=== PATIENT | female | born 1990 | race Caucasian/White ===

== ENCOUNTER 2016-12-31 12:30 | Emergency (ER) | payer BC ==
[2016-12-31] MEDS ORDERED: Doxycycline 100 MG Cap PO ONE (12:52)
[2016-12-31] MEDS ORDERED: Sodium Chloride 0.9% 10 ML Syringe FLUSH PRN (12:52)
[2016-12-31] MEDS ORDERED: cefTRIAXone 2 GM in Sodium Chloride 0.9% 100 ML IV ONE (12:52)
--- NOTE | 2016-12-31 12:54 | EDM.PDOC ---
ED HPI GENERAL MEDICAL PROBLEM - General Chief Complaint: Lower Extremity Injury/Pain Stated Complaint: RIGHT FOOT INJURY Time Seen by Provider: 12/31/16 12:51 Source of Information: Reports: Patient History Limitations: Reports: No Limitations - History of Present Illness INITIAL COMMENTS - FREE TEXT/NARRATIVE: 18-year-old female presents the ED with an acute puncture wound to the plantar surface of her right foot. She states she went to break a piece of wood for Fire last night in unbeknownst to her that was a screw-in the end of voiding. The screw entered through her sandal and into the wrist and TP joint on the plantar surface of the foot. She states she did wash it out initially with hydroperoxide. Area swelled up during the night and throbbing pain kept her awake good portion of the night. Kyleigh is now reddened and very swollen suggesting developing early infective process. She believes her tetanus toxoid is up-to-date. She can hardly walk and the pain is rated at 8 out of 10. This suggests either a nerve injury or joint injury. 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 - History Comment History Comment: vits Social & Family History - Family History Family Medical History: Noncontributory - Tobacco Use Smoking Status *Q: Current Every Day Smoker Years of Tobacco use: 21 Packs/Tins Daily: 0.4 Used Tobacco, but Quit: No Second Hand Smoke Exposure: Yes - Alcohol Use Days Per Week of Alcohol Use: 0 - Recreational Drug Use Recreational Drug Use: No - Living Situation & Occupation Occupation: Unemployed ED ROS GENERAL - Review of Systems Review Of Systems: See Below Constitutional: Reports: No Symptoms HEENT: Reports: No Symptoms Respiratory: Reports: No Symptoms Cardiovascular: Reports: No Symptoms Endocrine: Reports: No Symptoms GI/Abdominal: Reports: No Symptoms : Reports: No Symptoms Musculoskeletal: Reports: No Symptoms Skin: Reports: No Symptoms Neurological: Reports: No Symptoms Psychiatric: Reports: No Symptoms Hematologic/Lymphatic: Reports: No Symptoms Immunologic: Reports: No Symptoms ED EXAM, SKIN/RASH Exam: See Below Exam Limited By: No Limitations General Appearance: Alert, Moderate Distress (Appears to be in moderate amount of pain.) Extremities: Other (Examination was limited to her right foot. There is increased swelling particularly plantar surface of the foot. There is a puncture wound that appears to have entered the first MTP joint of the foot. The area is reddened dorsally as well and very warm to palpation suggesting a developing cellulitis. He will build of the toe causes exquisite pain.) Skin: Erythema (Over the dorsal and plantar surface of the great toe on the right side ) Course - Vital Signs Last Recorded V/S: Last Vital Signs Temp 36.5 C 12/31/16 12:54 Pulse 102 H 12/31/16 12:54 Resp 18 12/31/16 12:54 BP 131/90 12/31/16 12:54 Pulse Ox 100 12/31/16 12:54 - Orders/Labs/Meds Orders: Active Orders 24 hr Category Date Time Status Peripheral IV Care [RC] . DIRECTED Care 12/31/16 12:52 Active Peripheral IV Insertion Adult [OM.PC] Stat Oth 12/31/16 12:52 Ordered Meds: Medications Discontinued Medications Generic Name Dose Route Start Last Admin Trade Name Freq PRN Reason Stop Dose Admin Doxycycline Hyclate 200 mg 12/31/16 12:52 12/31/16 13:23 Vibramycin PO 12/31/16 12:53 200 mg ONETIME ONE Administration Doxycycline Hyclate Confirm 12/31/16 13:35 12/31/16 14:17 Vibramycin Administered 12/31/16 13:36 100 mg Dose Administration 100 mg .ROUTE .STK-MED ONE Ceftriaxone Sodium 2 gm/ 100 mls @ 200 mls/hr 12/31/16 12:52 12/31/16 13:26 Sodium Chloride IV 12/31/16 13:21 200 mls/hr ONETIME ONE Administration Ketorolac Tromethamine 30 mg 12/31/16 13:00 12/31/16 13:24 Toradol IVPUSH 30 mg ONETIME ARTIE Administration Sodium Chloride 10 ml 12/31/16 12:52 12/31/16 13:33 Saline Flush FLUSH 10 ml ASDIRECTED PRN Administration Keep Vein Open - Radiology Interpretation Free Text/Narrative:: 26-year-old female presents to the ED with a puncture wound to the plantar surface of her right foot that occurred last night from a screw in a piece of wood. Went through her sandal and into her foot. There is swollen and become more painful and reddened overnight. She can't walk on his foot other than her walking. Pain is rated as 8 out of 10 suggesting possible nerve or joint injury. No doubt about a cellulitis developing in the area. Plan x-ray of the foot will be obtained. She'll be given Rocephin 2 g intravenously and doxycycline 200 mg by mouth. Toradol 30 mg IV for pain relief as she is driving a motor vehicle at this time - Re-Assessments/Exams Free Text/Narrative Re-Assessment/Exam: 12/31/16 14:01 x-ray of the foot is normal. Patient will be treated with IV Rocephin and then be able to be discharged home. I'm going to place her on clindamycin 300 mg 3 times a day for 7 days with doxycycline 100 mg twice a day for 10 days to clear up infective process in her foot. Percocet 5/3/25 milligrams tablets 16 were provided for pain relief. She will also use Aleve 2 tablets every 8 hours to reduce pain and inflammation. Departure - Departure Time of Disposition: 14:15 Disposition: Home, Self-Care 01 Condition: Fair Clinical Impression: Puncture wound of plantar aspect of right foot with infection Qualifiers: Encounter type: initial encounter Qualified Code(s): S91.331A - Puncture wound without foreign body, right foot, initial encounter - Discharge Information Prescriptions: Doxycycline [Vibramycin] 100 mg PO Q12HR #20 cap Clindamycin HCl 300 mg PO TID #21 capsule oxyCODONE HCl/Acetaminophen [Percocet 5-325 mg Tablet] 1 - 2 each PO Q4H PRN # 16 tablet PRN Reason: pain relief. Instructions: Puncture Wound, [id number] Referrals: Catrachita Carbajal DO [Primary Care Provider] - Forms: ED Department Discharge Additional Instructions: Evaluation in the emergency room today in regards to puncture wound to the plantar surface of your right foot. The screw appears to puncture through the skin right at the MTP joint space. X-ray of the foot did not reveal any bony injuries. Obvious infection has developed at the wound site traveling to the dorsal aspect of the toe as well. This is called cellulitis. You're treated in the emergency room with initial dose of antibiotics Rocephin 2 g IV. You're given Toradol 30 mg IV for pain relief since her driving a motor vehicle. Treatment at home is to start to antibiotics doxycycline 100 mg twice daily for 10 days with the next tablet due at bedtime tonight. Also clindamycin 300 mg 3 times daily with initial tablet to be started at bedtime tonight as well. This will be taken for one week. Expect improvement since terms of pain and swelling over the next 48-72 hours. Suggest Aleve 2 tablets every 8 hours to relieve pain and inflammation. Percocet 5/ next follow-up if not markedly improved in 72 hours time. 25 milligram tablets one or 2 every 4-6 hours for further pain relief not provided by leave alone. Of note with the strong pain medications he cannot operate a motor vehicle while taking these medications. - My Orders Last 24 Hours: My Active Orders 12/31/16 12:52 Peripheral IV Care [RC] . DIRECTED Peripheral IV Insertion Adult [OM.PC] Stat - Assessment/Plan Last 24 Hours: My Active Orders 12/31/16 12:52 Peripheral IV Care [RC] . DIRECTED Peripheral IV Insertion Adult [OM.PC] Stat
[2016-12-31] MEDS ORDERED: Ketorolac 30 MG/ML SDV IVPUSH SCH (13:00)
[2016-12-31 13:11] VITALS: BP 131/90
[2016-12-31] MEDS ORDERED: Doxycycline 100 MG Cap ONE (13:35)
--- NOTE | 2016-12-31 14:17 | CR ---
Right foot: Four views of the right foot were obtained. Small foreign body is projected within the ball of the foot between the first and second digits. Joint spaces are maintained. No acute fracture or other bony abnormality is appreciated. Impression: 1. Small foreign body as noted above. 2. No acute bony abnormality is appreciated. Diagnostic code #3
== END 2016-12-31 14:23 | disposition home or self-care (01) ==
LOC: JD.ED 12:30
DX: S91.331A Puncture wound without foreign body, right foot, initial encounter (principal); J45.909 Unspecified asthma, uncomplicated; F17.210 Nicotine dependence, cigarettes, uncomplicated; Z90.49 Acquired absence of other specified parts of digestive tract; Z79.899 Other long term (current) drug therapy; W26.8XXA Contact with other sharp object(s), not elsewhere classified, initial encounter
CPT/HCPCS: 73630; 96365; 96375; 99283; A9270; J0696; J1885; J7030; J7050; 99284

== ENCOUNTER 2017-12-01 09:42 | Emergency (ER) | payer BC ==
[2017-12-01] MEDS ORDERED: Sodium Chloride 0.9% 1,000 ML IV STA (10:25)
[2017-12-01] MEDS ORDERED: Ondansetron 4 MG/2 ML SDV IVPUSH ONE (10:25)
[2017-12-01] MEDS ORDERED: Sodium Chloride 0.9% 10 ML Syringe FLUSH PRN (10:25)
[2017-12-01] MEDS ORDERED: Pantoprazole 40 MG Vial IVPUSH ONE (10:26)
[2017-12-01] MEDS ORDERED: Pantoprazole 80 MG in Sodium Chloride 0.9% 100 ML IV SCH (10:30)
--- NOTE | 2017-12-01 12:48 | EDM.PDOC ---
ED HPI GENERAL MEDICAL PROBLEM - General Chief Complaint: Gastrointestinal Problem Stated Complaint: VOMITING BLOOD Time Seen by Provider: 12/01/17 10:18 Source of Information: Reports: Patient History Limitations: Reports: No Limitations - History of Present Illness INITIAL COMMENTS - FREE TEXT/NARRATIVE: The patient presents because she is vomiting blood. She says this has been a problem for the past year. Every time she vomits she will have some black, tarry emesis with blood. This has been getting worse. I ask her if she vomits a lot and she said sometimes. She has a week stomach. She did drink last night and vomited. She has no fever, chills, cough, congestion, chest pain, shortness of breath, or abdominal pain. She does have some nausea. She never had a EGD before. She has no history of surgeries. Onset: Gradual Duration: Week(s): Severity: Moderate Improves with: Reports: None Worsens with: Reports: None Associated Symptoms: Reports: Nausea/Vomiting. Denies: Confusion, Chest Pain, Fever/Chills, Headaches, Shortness of Breath - Related Data Allergies Allergy/AdvReac Type Severity Reaction Status Date / Time No Known Allergies Allergy Verified 12/01/17 09:55 Home Meds: Home Meds Albuterol [Ventolin HFA] 2 puff INH Q4HR PRN 12/01/17 [History] Dextroamphetamine/Amphetamine [Adderall Xr 15 mg Capsule] 1 cap PO DAILY [History] Omeprazole Magnesium [Prilosec Otc] 20 mg PO DAILY #14 tablet. 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 - History Comment History Comment: vits Social & Family History - Family History Family Medical History: Noncontributory - Tobacco Use Smoking Status *Q: Current Every Day Smoker Years of Tobacco use: 21 Packs/Tins Daily: 0.5 - Caffeine Use Caffeine Use: Reports: Coffee, Energy Drinks, Soda, Tea - Recreational Drug Use Recreational Drug Use: No - Living Situation & Occupation Occupation: Unemployed ED ROS GENERAL - Review of Systems Review Of Systems: See Below Constitutional: Reports: No Symptoms HEENT: Reports: No Symptoms Respiratory: Reports: No Symptoms Cardiovascular: Reports: No Symptoms Endocrine: Reports: No Symptoms GI/Abdominal: Reports: Hematemesis, Nausea, Vomiting. Denies: Abdominal Pain, Diarrhea : Reports: No Symptoms Musculoskeletal: Reports: No Symptoms ED EXAM, GI/ABD - Physical Exam Exam: See Below Exam Limited By: No Limitations General Appearance: Alert, No Apparent Distress Ears: Normal External Exam Nose: Normal Inspection Head: Atraumatic, Normocephalic Neck: Normal Inspection Respiratory/Chest: No Respiratory Distress, Lungs Clear, Normal Breath Sounds Cardiovascular: Regular Rate, Rhythm, No Edema, No Murmur GI/Abdominal Exam: Soft, Non-Tender, No Organomegaly, No Mass Back Exam: Normal Inspection Extremities: Normal Inspection Neurological: Alert, Oriented, No Motor/Sensory Deficits Course - Vital Signs Last Recorded V/S: Last Vital Signs Temp 98.1 F 12/01/17 09:50 Pulse 98 12/01/17 09:50 Resp 18 12/01/17 09:50 BP 124/80 12/01/17 09:50 Pulse Ox 100 12/01/17 09:50 - Orders/Labs/Meds Orders: Active Orders 24 hr Category Date Time Status Peripheral IV Care [RC] . DIRECTED Care 12/01/17 10:25 Active Pantoprazole [ProTONIX IV] 80 mg Med 12/01/17 10:30 Active Sodium Chloride 0.9% [Normal Saline] 100 ml IV Q10H Sodium Chloride 0.9% [Saline Flush] Med 12/01/17 10:25 Active 10 ml FLUSH ASDIRECTED PRN ED Antiemetic Medication Reflex [OM.PC] Stat Oth 12/01/17 10:25 Ordered Peripheral IV Insertion Adult [OM.PC] Stat Oth 12/01/17 10:25 Ordered Medication Orders Pantoprazole Sodium 80 mg/ (Sodium Chloride) 100 mls @ 10 mls/hr IV Q10H ARTIE Last Admin: 12/01/17 11:01 Dose: 10 mls/hr Sodium Chloride (Saline Flush) 10 ml FLUSH ASDIRECTED PRN PRN Reason: Keep Vein Open Last Admin: 12/01/17 10:57 Dose: 10 ml Labs: Laboratory Tests 12/01/17 12/01/17 Range/Units 10:57 10:57 WBC 8.03 (3.98-10.04) K/mm3 RBC 4.85 (3.98-5.22) M/mm3 Hgb 14.4 (11.2-15.7) gm/L Hct 41.7 (34.1-44.9) % MCV 86.0 (79.4-94.8) fl MCH 29.7 (25.6-32.2) pg MCHC 34.5 (32.2-35.5) g/dl RDW Std Deviation 39.8 (36.4-46.3) fL Plt Count 388 H (182-369) K/mm3 MPV 9.2 L (9.4-12.3) fl Neut % (Auto) 58.1 (34.0-71.1) % Lymph % (Auto) 30.8 (19.3-51.7) % [place] % (Auto) 9.5 (4.7-12.5) % Eos % (Auto) 1.0 (0.7-5.8) Baso % (Auto) 0.4 (0.1-1.2) % Neut # (Auto) 4.67 (1.56-6.13) K/mm3 Lymph # (Auto) 2.47 (1.18-3.74) K/mm3 Haskell # (Auto) 0.76 H (0.24-0.36) K/mm3 Eos # (Auto) 0.08 (0.04-0.36) K/mm3 Baso # (Auto) 0.03 (0.01-0.08) K/mm3 Sodium 139 (136-145) mEq/L Potassium 4.0 (3.5-5.1) mEq/L Chloride 102 (98-107) mEq/L Carbon Dioxide 24 (21-32) mEq/L Anion Gap 17.0 H (5-15) BUN 10 (7-18) mg/dL Creatinine 0.8 (0.55-1.02) mg/dL Est Cr Clr Drug Dosing 89.60 mL/min Estimated GFR (MDRD) > 60 (>60) mL/min BUN/Creatinine Ratio 12.5 L (14-18) Glucose 88 (74-106) mg/dL Calcium 8.4 L (8.5-10.1) mg/dL Total Bilirubin 0.9 (0.2-1.0) mg/dL AST 63 H (15-37) U/L ALT 51 (14-59) U/L Alkaline Phosphatase 72 (46-116) U/L Total Protein 7.7 (6.4-8.2) g/dl Albumin 4.1 (3.4-5.0) g/dl Globulin 3.6 gm/dL Albumin/Globulin Ratio 1.1 (1-2) Lipase 55 L (73-393) U/L Meds: Medications Generic Name Dose Route Start Last Admin Trade Name Freq PRN Reason Stop Dose Admin Pantoprazole Sodium 80 mg/ 100 mls @ 10 mls/hr 12/01/17 10:30 12/01/17 11:01 Sodium Chloride IV 10 mls/hr Q10H ARTIE Administration Sodium Chloride 10 ml 12/01/17 10:25 12/01/17 10:57 Saline Flush FLUSH 10 ml ASDIRECTED PRN Administration Keep Vein Open Discontinued Medications Generic Name Dose Route Start Last Admin Trade Name Freq PRN Reason Stop Dose Admin Sodium Chloride 1,000 mls @ 1,000 mls/hr 12/01/17 10:25 12/01/17 10:57 Normal Saline IV 12/01/17 11:24 1,000 mls/hr .BOLUS STA Administration Ondansetron HCl 4 mg 12/01/17 10:25 12/01/17 10:57 Zofran IVPUSH 12/01/17 10:26 4 mg ONETIME ONE Administration Pantoprazole Sodium 80 mg 12/01/17 10:26 12/01/17 11:00 Protonix Iv IVPUSH 12/01/17 10:27 80 mg .BOLUS ONE Administration - Re-Assessments/Exams Free Text/Narrative Re-Assessment/Exam: 12/01/17 12:50 I ordered an IV NS 1L bolus, protonix bolus of 80mg IV, protonix drip at 8mg/hr , and labs. She did not want a rectal done. Her CBC and CMP look good. It sounds like she has gastritis versus and ulcer. I will get her on some prilosec and have her follow up with Dr Solis. Departure - Departure Time of Disposition: 12:55 Disposition: Home, Self-Care 01 Condition: Good Clinical Impression: Gastritis Qualifiers: Gastritis type: unspecified gastritis Chronicity: acute Gastritis bleeding: with bleeding Qualified Code(s): K29.01 - Acute gastritis with bleeding - Discharge Information *PRESCRIPTION DRUG MONITORING PROGRAM REVIEWED*: Not Applicable *COPY OF PRESCRIPTION DRUG MONITORING REPORT IN PATIENT JULISSA: Not Applicable Prescriptions: Omeprazole Magnesium [Prilosec Otc] 20 mg PO DAILY #14 tablet.dr Referrals: Mary Plummer NP [Primary Care Provider] - Joe Solis MD [Physician] - 1 Week Additional Instructions: Avoid alcohol and any spicy foods. Take the prilosec 20mg daily for 2 weeks. Follow up with Dr Solis in a week. Please return if you are worse. - My Orders Last 24 Hours: My Active Orders 12/01/17 10:25 Peripheral IV Care [RC] . DIRECTED Sodium Chloride 0.9% [Saline Flush] 10 ml FLUSH ASDIRECTED PRN ED Antiemetic Medication Reflex [OM.PC] Stat Peripheral IV Insertion Adult [OM.PC] Stat 12/01/17 10:30 Pantoprazole [ProTONIX IV] 80 mg Sodium Chloride 0.9% [Normal Saline] 100 ml IV Q10H - Assessment/Plan Last 24 Hours: My Active Orders 12/01/17 10:25 Peripheral IV Care [RC] . DIRECTED Sodium Chloride 0.9% [Saline Flush] 10 ml FLUSH ASDIRECTED PRN ED Antiemetic Medication Reflex [OM.PC] Stat Peripheral IV Insertion Adult [OM.PC] Stat 12/01/17 10:30 Pantoprazole [ProTONIX IV] 80 mg Sodium Chloride 0.9% [Normal Saline] 100 ml IV Q10H
[2017-12-01 15:40] VITALS: BP 114/62
== END 2017-12-01 13:08 | disposition home or self-care (01) ==
LOC: JD.ED 09:42
DX: K29.01 Acute gastritis with bleeding (principal); F17.210 Nicotine dependence, cigarettes, uncomplicated
CPT/HCPCS: 36415; 80053; 83690; 85025; 96365; 96366; 96375; 96376; 99284; C9113; J2405; J7030; J7040; J7050

== ENCOUNTER 2020-09-10 07:35 | Inpatient (IN) | payer MEDICAID ==
[2020-09-10] MEDS ORDERED: Ampicillin 2 GM AdvVial IV ONE (08:00)
[2020-09-10] MEDS ORDERED: Sodium Chloride 0.9% 100 ML ONE (08:01)
[2020-09-10] MEDS ORDERED: Nalbuphine 10 MG/1 ML Vial IVPUSH PRN (08:02)
[2020-09-10] MEDS ORDERED: Sodium Chloride 0.9% 10 ML Syringe FLUSH PRN (08:02)
[2020-09-10] MEDS ORDERED: Ondansetron 4 MG/2 ML SDV IVPUSH PRN (08:02)
[2020-09-10] MEDS ORDERED: ePHEDrine 50 MG/ML SDV IVPUSH PRN (08:09)
[2020-09-10] MEDS ORDERED: diphenhydrAMINE 50 MG/ML SDV IVPUSH PRN (08:09)
[2020-09-10] MEDS ORDERED: fentaNYL 100 MCG/2 ML SDV EPIDUR PRN (08:09)
[2020-09-10] MEDS ORDERED: Lactated Ringers 1,000 ML IV SCH (08:15)
[2020-09-10] MEDS ORDERED: Oxytocin/Lactated Ringers 10 UNIT/1,000 ML BAG IV SCH (08:15)
[2020-09-10] MEDS ORDERED: Ampicillin 2 GM in Sodium Chloride 0.9% 100 ML IV ONE (08:30)
--- NOTE | 2020-09-10 08:48 | PCM.LDHP ---
L&D History of Present Illness - General Date of Service: 09/10/20 Admit Problem/Dx: Patient Status Order with Admit Dx/Problem 09/10/20 08:03 Patient Status [ADT] Routine Admission Diagnosis/Problem Admission Diagnosis/Problem Labor established - History of Present Illness Introduction:: 29 year old at 37+ here in labor. PNC with myself without complications o ther than possible drug use. Pain Score: 10 - Related Data Allergies/Adverse Reactions: Allergies Allergy/AdvReac Type Severity Reaction Status Date / Time No Known Allergies Allergy Verified 09/07/20 00:01 Home Medications: Home Meds Albuterol [Ventolin HFA] 2 puff INH Q4HR PRN 12/01/17 [History] Dextroamphetamine/Amphetamine [Adderall Xr 15 mg Capsule] 1 cap PO DAILY 12/01/17 [History] Omeprazole Magnesium [Prilosec Otc] 20 mg PO DAILY #14 tablet. 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 - History Comment History Comment: vits Social & Family History - Family History Family Medical History: No Pertinent Family History - Caffeine Use Caffeine Use: Reports: Coffee, Energy Drinks, Soda, Tea - Living Situation & Occupation Occupation: Unemployed H&P Review of Systems - Review of Systems: Review Of Systems: See Below General: Reports: No Symptoms HEENT: Reports: No Symptoms Pulmonary: Reports: No Symptoms Cardiovascular: Reports: No Symptoms Gastrointestinal: Reports: No Symptoms Genitourinary: Reports: No Symptoms Musculoskeletal: Reports: No Symptoms Skin: Reports: No Symptoms Psychiatric: Reports: No Symptoms Neurological: Reports: No Symptoms Hematologic/Lymphatic: Reports: No Symptoms Immunologic: Reports: No Symptoms L&D Exam - Exam Exam: See Below - Vital Signs Weight: 84.595 kg - OB Specific Contraction Intensity: Strong Movement: Active Heart Tones: Present Heart Rate (FHR) Variability: Moderate (6-25 bmp) Presentation: Vertex - Wharton Score Wharton Score Cervix Position: Anterior Wharton Score Consistency: Soft Wharton Score Effacement: >80% Wharton Score Dilation: > 5 cm Wharton Score Infant's Station: -3 Wharton Score Total: 10 - Exam General: Alert, Oriented HEENT: PERRLA, Conjunctiva Clear, EACs Clear, EOMI, Hearing Intact, Mucosa Moist & [place], Nares Patent, Normal Nasal Septum, Posterior Pharynx Clear, TMs Clear Neck: Supple, Trachea Midline Lungs: Clear to Auscultation, Normal Respiratory Effort Cardiovascular: Regular Rate, Regular Rhythm GI/Abdominal Exam: Normal Bowel Sounds, Soft, Non-Tender, No Organomegaly, No Distention, No Abnormal Bruit, No Mass, Pelvis Stable Back Exam: Normal Inspection, Full Range of Motion Extremities: Normal Inspection, Normal Range of Motion, Non-Tender, No Pedal Edema, Normal Capillary Refill Skin: Warm, Dry, Intact Neurological: Cranial Nerves Intact, Reflexes Equal Bilateral Psychiatric: Alert, Normal Affect, Normal Mood - Patient Data Lab Results Last 24 hrs: Laboratory Results - last 24 hr 09/10/20 Range/Units 08:01 WBC 19.42 H (3.98-10.04) K/mm3 RBC 4.37 (3.98-5.22) M/mm3 Hgb 12.3 D (11.2-15.7) gm/dl Hct 38.3 (34.1-44.9) % MCV 87.6 (79.4-94.8) fl MCH 28.1 (25.6-32.2) pg MCHC 32.1 L (32.2-35.5) g/dl RDW Std Deviation 47.3 H (36.4-46.3) fL Plt Count 387 H (182-369) K/mm3 MPV 9.9 (9.4-12.3) fl Neut % (Auto) 77.2 H (34.0-71.1) % Lymph % (Auto) 13.9 L (19.3-51.7) % [place] % (Auto) 7.1 (4.7-12.5) % Eos % (Auto) 1.2 (0.7-5.8) Baso % (Auto) 0.1 (0.1-1.2) % Neut # (Auto) 15.01 H (1.56-6.13) K/mm3 Lymph # (Auto) 2.69 (1.18-3.74) K/mm3 [place] # (Auto) 1.37 H (0.24-0.36) K/mm3 Eos # (Auto) 0.23 (0.04-0.36) K/mm3 Baso # (Auto) 0.02 (0.01-0.08) K/mm3 Result Diagrams: 09/10/20 08:01 Problem List Initiated/Reviewed/Updated: Yes Orders Last 24hrs: Active Orders 24 hr Category Date Time Status Patient Status [ADT] Routine ADT 09/10/20 08:03 Active Activity as Tolerated [RC] PFP Care 09/10/20 08:02 Active Communication Order [RC] ASDIRECTED Care 09/10/20 08:02 Active Heart Tones [RC] ASDIRECTED Care 09/10/20 08:03 Active Non Stress Test [RC] PER UNIT ROUTINE Care 09/10/20 08:02 Active Notify Provider [RC] ASDIRECTED Care 09/10/20 08:09 Active Notify Provider [RC] PFP Care 09/10/20 08:02 Active Notify Provider [RC] PRN Care 09/10/20 08:02 Active Peripheral IV Care [RC] . DIRECTED Care 09/10/20 08:03 Active Vital Signs [RC] PER UNIT ROUTINE Care 09/10/20 08:02 Active Regular Diet [DIET] Diet 09/10/20 Breakfast Active CORONAVIRUS COVID-19 POOJA [MOLEC] Stat Lab 09/10/20 08:01 Received HEP C VIRUS AB [REF] Stat Lab 09/10/20 08:01 Received RAPID PLASMA REAGIN,RPR [CHEM] Routine Lab 09/10/20 08:01 Received Ampicillin 1 gm Med 09/10/20 12:30 Active Sodium Chloride 0.9% [Normal Saline] 100 ml IV Q4H Ampicillin 2 gm Med 09/10/20 08:30 Active Sodium Chloride 0.9% [Normal Saline] 100 ml IV ONETIME Lactated Ringers [Ringers, Lactated] 1,000 ml Med 09/10/20 08:15 Active IV ASDIRECTED Nalbuphine [Nubain] Med 09/10/20 08:02 Active 10 mg IVPUSH Q2H PRN Ondansetron [Zofran] Med 09/10/20 08:02 Active 4 mg IVPUSH Q4H PRN Oxytocin/Lactated Ringers [Pitocin in LR 10 Units/1,000 Med 09/10/20 08:15 Active ML] 10 unit in 1,000 ml IV .CONTINUOUS Sodium Chloride 0.9% [Saline Flush] Med 09/10/20 08:02 Active 10 ml FLUSH ASDIRECTED PRN diphenhydrAMINE [Benadryl] Med 09/10/20 08:09 Active 25 mg IVPUSH Q6H PRN ePHEDrine [ePHEDrine sulfate] Med 09/10/20 08:09 Active 5 mg IVPUSH ASDIRECTED PRN fentaNYL [Sublimaze] Med 09/10/20 08:09 Active 100 mcg EPIDUR Q3H PRN Electronic Heart Tones Ext w TOCO [WOMSER] Oth 09/10/20 08:02 Ordered Routine Electronic Heart Tones Internal [WOMSER] Per Unit Oth 09/10/20 08:02 Ordered Routine Peripheral IV Insertion Adult [OM.PC] Routine Oth 09/10/20 08:02 Ordered Resuscitation Status Routine Resus Stat 09/10/20 08:02 Ordered Medication Orders Diphenhydramine HCl (Diphenhydramine 50 Mg/Ml Sdv) 25 mg IVPUSH Q6H PRN PRN Reason: pruritis Ephedrine Sulfate (Ephedrine 50 Mg/Ml Sdv) 5 mg IVPUSH ASDIRECTED PRN PRN Reason: Hypotension Fentanyl (Fentanyl 100 Mcg/2 Ml Sdv) 100 mcg EPIDUR Q3H PRN PRN Reason: Pain Last Admin: 09/10/20 08:24 Dose: 100 mcg Documented by: [id number] Ampicillin Sodium 2 gm/ Sodium (Chloride) 100 mls @ 200 mls/hr IV ONETIME ONE Stop: 09/10/20 08:59 Ampicillin Sodium 1 gm/ Sodium (Chloride) 100 mls @ 200 mls/hr IV Q4H ARTIE Oxytocin/Lactated Ringer's (Pitocin In Lr 10 Units/1,000 Ml) 10 unit in 1,000 mls @ 100 mls/hr IV .CONTINUOUS ARTIE Lactated Ringer's (Ringers, Lactated) 1,000 mls @ 100 mls/hr IV ASDIRECTED ARTIE Nalbuphine HCl (Nalbuphine 10 Mg/1 Ml Vial) 10 mg IVPUSH Q2H PRN PRN Reason: Pain Ondansetron HCl (Ondansetron 4 Mg/2 Ml Sdv) 4 mg IVPUSH Q4H PRN PRN Reason: Nausea/Vomiting Sodium Chloride (Sodium Chloride 0.9% 10 Ml Syringe) 10 ml FLUSH ASDIRECTED PRN PRN Reason: Keep Vein Open Assessment/Plan Comment:: Term labor. Spinal in. Anticipate .
[2020-09-10] MEDS ORDERED: Benzocaine/Menthol 20%-0.5% Spray 56 GM Canister TOP PRN (09:22)
[2020-09-10] MEDS ORDERED: Witch Hazel Medicated Pads 40/Jar TOP PRN (09:22)
--- NOTE | 2020-09-10 09:23 | PCM.SN.2 ---
- Free Text/Narrative Note: Stage I - Patient presented in active labor, SROM of meconium stained fluid sometime yesterday. One dose of antibiotics given for GBS. Progressed to complete with spinal for anesthesia. STage II - of viable male, weight 3080, 8/9 APGARS at 0905. Head delivered in controlled manner over intact perineum. Body and shoulder atraumatically. To maternal abdomen. Cord clamped and cut. Cord blood collected. Stage III - of intact placenta. 3vc. No laceration. EBL 100
--- NOTE | 2020-09-10 11:28 | PCM.PREANE ---
Preanesthetic Assessment - Procedure Proposed Procedure: Labor Spinal 9 cm on arrival to OB unit. - Anesthesia/Transfusion/Family Hx Anesthesia History: Prior Anesthesia Without Reaction Family History of Anesthesia Reaction: No Transfusion History: No Prior Transfusion(s) - Review of Systems General: No Symptoms Pulmonary: Other (Smoker 1/2 ppd. Asthma, controlled. ) Cardiovascular: Palpitations (with history of bigeminy. ) Neurological: No Symptoms Other: Reports: None (Poly substance abuse. ) - Physical Assessment Vital Signs: Last Vital Signs Temp 36.7 C 09/10/20 07:59 Pulse 93 09/10/20 08:51 Resp 14 09/10/20 07:59 BP 122/54 L 09/10/20 10:30 Pulse Ox 99 09/10/20 08:51 Height: 1.63 m Weight: 84.595 kg ASA Class: 3 Mental Status: Alert & Oriented x3 Airway Class: Mallampati = 1 Dentition: Reports: Missing Tooth/Teeth, Caries Thyro-Mental Finger Breadths: 3 Mouth Opening Finger Breadths: 3 ROM/Head Extension: Full Lungs: Clear to Auscultation, Normal Respiratory Effort Cardiovascular: Regular Rate, Regular Rhythm - Lab Values: Laboratory Last Values WBC 19.42 K/mm3 (3.98-10.04) H 09/10/20 08:01 RBC 4.37 M/mm3 (3.98-5.22) 09/10/20 08:01 Hgb 12.3 gm/dl (11.2-15.7) D 09/10/20 08:01 Hct 38.3 % (34.1-44.9) 09/10/20 08:01 MCV 87.6 fl (79.4-94.8) 09/10/20 08:01 MCH 28.1 pg (25.6-32.2) 09/10/20 08:01 MCHC 32.1 g/dl (32.2-35.5) L 09/10/20 08:01 RDW Std Deviation 47.3 fL (36.4-46.3) H 09/10/20 08:01 Plt Count 387 K/mm3 (182-369) H 09/10/20 08:01 MPV 9.9 fl (9.4-12.3) 09/10/20 08:01 Neut % (Auto) 77.2 % (34.0-71.1) H 09/10/20 08:01 Lymph % (Auto) 13.9 % (19.3-51.7) L 09/10/20 08:01 [place] % (Auto) 7.1 % (4.7-12.5) 09/10/20 08:01 Eos % (Auto) 1.2 (0.7-5.8) 09/10/20 08:01 Baso % (Auto) 0.1 % (0.1-1.2) 09/10/20 08:01 Neut # (Auto) 15.01 K/mm3 (1.56-6.13) H 09/10/20 08:01 Lymph # (Auto) 2.69 K/mm3 (1.18-3.74) 09/10/20 08:01 [place] # (Auto) 1.37 K/mm3 (0.24-0.36) H 09/10/20 08:01 Eos # (Auto) 0.23 K/mm3 (0.04-0.36) 09/10/20 08:01 Baso # (Auto) 0.02 K/mm3 (0.01-0.08) 09/10/20 08:01 Urine Opiates Screen Presumptive positive (KCOEFA=772) H 09/10/20 08:55 Ur Buprenorphine Scrn Negative (CUTOFF=10) 09/10/20 08:55 Ur Oxycodone Screen Negative (TRB0TE=811) 09/10/20 08:55 Urine Methadone Screen Negative (KWFAHL=183) 09/10/20 08:55 Ur Propoxyphene Screen Negative (APVJWB=237) 09/10/20 08:55 Ur Barbiturates Screen Negative (IFKODR=476) 09/10/20 08:55 Ur Tricyclics Screen Negative (ZZAKCH=992) 09/10/20 08:55 Ur Phencyclidine Scrn Negative (CUTOFF=25) 09/10/20 08:55 Ur Amphetamine Screen Negative (HMCHEX=760) 09/10/20 08:55 U Methamphetamines Scrn Negative (JDIEEI=679) 09/10/20 08:55 U Benzodiazepines Scrn Negative (IWEWDJ=926) 09/10/20 08:55 U Cocaine Metab Screen Negative (DJITPS=285) 09/10/20 08:55 U Marijuana (THC) Screen Presumptive positive (CUTOFF=50) H 09/10/20 08:55 SARS-CoV-2 RNA (POOJA) Negative (NEGATIVE) 09/10/20 08:01 - Allergies Allergies/Adverse Reactions: Allergies Allergy/AdvReac Type Severity Reaction Status Date / Time No Known Allergies Allergy Verified 09/07/20 00:01 - Acknowledgements Anesthesia Type Planned: Spinal Pt an Appropriate Candidate for the Planned Anesthesia: Yes Alternatives and Risks of Anesthesia Discussed w Pt/Guardian: Yes Pt/Guardian Understands and Agrees with Anesthesia Plan: Yes PreAnesthesia Questionnaire - Past Health History Medical/Surgical History: Denies Medical/Surgical History 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 - History Comment History Comment: vits - HOME MEDS Home Medications: Home Meds Albuterol [Ventolin HFA] 2 puff INH Q4HR PRN 12/01/17 [History] Dextroamphetamine/Amphetamine [Adderall Xr 15 mg Capsule] 1 cap PO DAILY 12/01/17 [History] Omeprazole Magnesium [Prilosec Otc] 20 mg PO DAILY #14 tablet. 12/01/17 [Rx] - CURRENT (IN HOUSE) MEDS Current Meds: Current Medications Benzocaine/Menthol (Benzocaine/Menthol 20%-0.5% [place] 56 Gm Canister) 0 gm TOP ASDIRECTED PRN PRN Reason: Perineal Comfort Measure Ibuprofen (Ibuprofen 600 Mg Tab) 600 mg PO Q4H PRN PRN Reason: Mild pain or fever Witch Dodie (Witch Dodie Medicated Pads 40/Jar) 1 pad TOP ASDIRECTED PRN PRN Reason: Perineal Comfort Measure Discontinued Medications Ampicillin Sodium (Ampicillin 2 Gm Advvial) Confirm Administered Dose 2 gm IV .STK-MED ONE Stop: 09/10/20 08:01 Diphenhydramine HCl (Diphenhydramine 50 Mg/Ml Sdv) 25 mg IVPUSH Q6H PRN PRN Reason: pruritis Ephedrine Sulfate (Ephedrine 50 Mg/Ml Sdv) 5 mg IVPUSH ASDIRECTED PRN PRN Reason: Hypotension Fentanyl (Fentanyl 100 Mcg/2 Ml Sdv) 100 mcg EPIDUR Q3H PRN PRN Reason: Pain Last Admin: 09/10/20 08:24 Dose: 100 mcg Documented by: Sodium Chloride (Normal Saline) Confirm Administered Dose 100 mls @ as directed .ROUTE .STK-MED ONE Stop: 09/10/20 08:02 Ampicillin Sodium 2 gm/ Sodium (Chloride) 100 mls @ 200 mls/hr IV ONETIME ONE Stop: 09/10/20 08:59 Ampicillin Sodium 1 gm/ Sodium (Chloride) 100 mls @ 200 mls/hr IV Q4H ARTIE Oxytocin/Lactated Ringer's (Pitocin In Lr 10 Units/1,000 Ml) 10 unit in 1,000 mls @ 100 mls/hr IV .CONTINUOUS ARTIE Lactated Ringer's (Ringers, Lactated) 1,000 mls @ 100 mls/hr IV ASDIRECTED ARTIE Nalbuphine HCl (Nalbuphine 10 Mg/1 Ml Vial) 10 mg IVPUSH Q2H PRN PRN Reason: Pain Ondansetron HCl (Ondansetron 4 Mg/2 Ml Sdv) 4 mg IVPUSH Q4H PRN PRN Reason: Nausea/Vomiting Sodium Chloride (Sodium Chloride 0.9% 10 Ml Syringe) 10 ml FLUSH ASDIRECTED PRN PRN Reason: Keep Vein Open
[2020-09-10] MEDS ORDERED: Ampicillin 1 GM in Sodium Chloride 0.9% 100 ML IV SCH (12:30)
[2020-09-10] MEDS: Ibuprofen 600 MG Tab PO PRN ×2 (16:14→20:09)
[2020-09-10] MEDS ORDERED: Acetaminophen 325 MG Tab PO PRN (18:10)
[2020-09-10] MEDS ORDERED: LORazepam 0.5 MG Tab PO PRN (21:35)
--- NOTE | 2020-09-10 21:40 | PCM.SN.2 ---
- Free Text/Narrative Note: Progress note: I was called by nursing staff to see Pushpa for concerns about anxiety and feeling very tense. On entrance into room patient is noted to be very anxious to the point of posturing. She is however alert and oriented x3 reports no other significant complaints. She denies any shortness of breath, chest pain, active bleeding. She does have some uterine cramps consistent with delivery earlier today. She is voiding well, has normal respiratory rate. Pulse is 60-70. Respiratory rate is within normal limits. Clinical evaluation shows skin on her face to have some sores present. HEENT, neck and back otherwise within normal limits. Lungs are clear with good breath sounds in all lung [place]. Abdomen is flat, soft. Uterus is below the bellybutton and firm. Extremities appear to be within normal limits. Review of her chart shows she has had a negative drug screen. There is concern about her prior use of drugs. On questioning her about this she reports that she takes oxycodone 5 mg tablets to up to 3 times a day. Reports she thinks this is what is making her anxious-that she has not taken them in a while. She is asking for something to help her sleep. Assessment: 1. Day of delivery. Now with anxiety which patient relates to not having codon to take regularly. She would like to have something to help her sleep. 2. No significant concerns related to her . Otherwise. Plan: 1. Ativan 0.5 mg now orally and repeat every 6-8 hours as needed for anxiety 2. Hydroxyzine 25 mg p.o. nightly to help her sleep. 3. Monitor vital signs closely.
[2020-09-10] MEDS: Nicotine 21 MG/24 Hr Patch TRDERM SCH (21:45)
[2020-09-10] MEDS ORDERED: hydrOXYzine HCl 50 MG Tab PO SCH (22:00)
[2020-09-10] MEDS ORDERED: hydrOXYzine HCl 25 MG Tab PO SCH (22:15)
[2020-09-11] MEDS ORDERED: Acetaminophen/oxyCODONE 325-5 MG Tab PO PRN (00:34)
--- NOTE | 2020-09-11 02:41 | PCM.SN.2 ---
- Free Text/Narrative Note: Progress Note: Patient continues to have agitation and increased anxiety. EKG was obtained and showed bigeminy but no other significant findings. Patient was placed on telemetry. Follow-up of her toxicology indicates that it is presumptive positive for opiates. With her history and her presumptive positive toxicology results and her clinical presentation suspect that she is withdrawing from her oxycodone. Have discussed with ER doctor the EKG results and recommendations that he would give. He suggested placing patient back on oxycodone as one of the options of therapy. Laboratory testing shows a CBC with white count 19.01, hemoglobin is 11.2, hematocrit is 34.6. Her magnesium level is mildly decreased at 1.7 with normal range 1.8-2.4. Patient was started on Percocet 5/325. She is given 2 tablets. She is now resting comfortably. O2 sats are 91-92% on room air. Heart rate is approximately 90. Assessment: 1 day #1-recovering well from delivery but having withdrawal symptoms which have been treated with oxycodone with very good results. 2. Mildly decreased magnesium at 1.7. 3. White blood count increased at 19.01. Plan: 1. Would recommend restarting IV. We will give magnesium 2 g IV over the course of an hour 3. Will recheck CBC and magnesium level in the a.m. 4. Continue with Percocet as at present. Patient desires to get off of her oxycodone and will plan to do this as an outpatient.
[2020-09-11] MEDS ORDERED: Magnesium Sulfate/Water 2 GM/50 ML BAG IV ONE (03:00)
[2020-09-11] MEDS: Nicotine 21 MG/24 Hr Patch TRDERM SCH (08:21)
[2020-09-11] MEDS: Ibuprofen 600 MG Tab PO PRN ×2 (08:22→12:45)
--- NOTE | 2020-09-11 09:31 | PCM.DCSUM1 ---
Discharge Summary - Hospital Course Free Text/Narrative:: Stage I - Patient presented in active labor, SROM of meconium stained fluid sometime yesterday. One dose of antibiotics given for GBS. Progressed to complete with spinal for anesthesia. STage II - of viable male, weight 3080, 8/9 APGARS at 0905. Head delivered in controlled manner over intact perineum. Body and shoulder atraumatically. To maternal abdomen. Cord clamped and cut. Cord blood collected. Stage III - of intact placenta. 3vc. No laceration. EBL 100 HPI Initial Comments: Stage I - Patient presented in active labor, SROM of meconium stained fluid sometime yesterday. One dose of antibiotics given for GBS. Progressed to complete with spinal for anesthesia. STage II - of viable male, weight 3080, 8/9 APGARS at 0905. Head delivered in controlled manner over intact perineum. Body and shoulder atraumatically. To maternal abdomen. Cord clamped and cut. Cord blood collected. Stage III - of intact placenta. 3vc. No laceration. EBL 100 Brief History: Stage I - Patient presented in active labor, SROM of meconium stained fluid sometime yesterday. One dose of antibiotics given for GBS. Progressed to complete with spinal for anesthesia. STage II - of viable male, weight 3080, 8/9 APGARS at 0905. Head delivered in controlled manner over intact perineum. Body and shoulder atraumatically. To maternal abdomen. Cord clamped and cut. Cord blood collected. Stage III - of intact placenta. 3vc. No laceration. EBL 100 Diagnosis: Stroke: No - Discharge Data Discharge Date: 09/11/20 Discharge Disposition: Home, Self-Care 01 Condition: Good - Referral to Home Health Primary Care Physician: Iza Jackson MD - Discharge Diagnosis/Problem(s) (1) Normal delivery at term SNOMED Code(s): 97954642 ICD Code: O80 - ENCOUNTER FOR FULL-TERM UNCOMPLICATED DELIVERY Status: Acute Current Visit: Yes (2) 39 weeks gestation of SNOMED Code(s): 85418005 ICD Code: Z3A.39 - 39 WEEKS GESTATION OF Status: Acute Current Visit: No (3) History of alcohol abuse SNOMED Code(s): 592658420 ICD Code: Z87.898 - PERSONAL HISTORY OF OTHER SPECIFIED CONDITIONS Status: Acute Current Visit: No (4) History of substance abuse SNOMED Code(s): 976987355 ICD Code: Z87.898 - PERSONAL HISTORY OF OTHER SPECIFIED CONDITIONS Status: Acute Current Visit: No - Patient Summary/Data Consults: Consultations 09/10/20 11:44 Consult to Case Management/Electric Tape Slitter [CONS] Routine - Patient Instructions Diet: Usual Diet as Tolerated Driving: Do Not Drive (x48 hours) Showering/Bathing: May Shower Notify Provider of: Fever, Increased Pain, Swelling and Redness, Drainage, Nausea and/or Vomiting - Discharge Plan *PRESCRIPTION DRUG MONITORING PROGRAM REVIEWED*: Not Applicable *COPY OF PRESCRIPTION DRUG MONITORING REPORT IN PATIENT JULISSA: Not Applicable Home Medications: Home Meds Albuterol [Ventolin HFA] 2 puff INH Q4HR PRN 12/01/17 [History] Dextroamphetamine/Amphetamine [Adderall Xr 15 mg Capsule] 1 cap PO DAILY 12/01/17 [History] Escitalopram Oxalate [Lexapro] 10 mg PO DAILY 09/10/20 [History] No122/Iron/Folic Acid [ Multi Tablet] 1 tab PO DAILY 09/10/20 [History] Acetaminophen [Tylenol] 650 mg PO Q6H PRN tablet 09/11/20 [Rx] Benzocaine/Menthol [Dermoplast Pain Relief [place]] 1 spray TOP ASDIRECTED PRN canister 09/11/20 [Rx] Ibuprofen [Motrin] 600 mg PO Q6H PRN tablet 09/11/20 [Rx] witch Tevin [Tucks] 1 pad TOP ASDIRECTED PRN pad 09/11/20 [Rx] - Discharge Summary/Plan Comment DC Time >30 min.: No - Patient Data Vitals - Most Recent: Last Vital Signs Temp 97 F 09/11/20 04:58 Pulse 54 L 09/11/20 04:58 Resp 14 09/11/20 04:58 BP 113/71 09/11/20 04:58 Pulse Ox 96 09/11/20 04:58 Weight - Most Recent: 186 lb 8 oz I&O - Last 24 hours: Intake & Output 09/10/20 09/11/20 09/11/20 22:59 06:59 14:59 Intake Total 240 Balance 240 Lab Results - Last 24 hrs: Laboratory Results - last 24 hr 09/10/20 09/10/20 09/11/20 Range/Units 08:01 08:55 00:09 WBC 19.01 H (3.98-10.04) K/mm3 RBC 3.94 L (3.98-5.22) M/mm3 Hgb 11.2 (11.2-15.7) gm/dl Hct 34.6 (34.1-44.9) % MCV 87.8 (79.4-94.8) fl MCH 28.4 (25.6-32.2) pg MCHC 32.4 (32.2-35.5) g/dl RDW Std Deviation 46.3 (36.4-46.3) fL Plt Count 315 (182-369) K/mm3 MPV 10.2 (9.4-12.3) fl Neut % (Auto) 78.9 H (34.0-71.1) % Lymph % (Auto) 12.5 L (19.3-51.7) % [place] % (Auto) 7.7 (4.7-12.5) % Eos % (Auto) 0.3 L (0.7-5.8) Baso % (Auto) 0.1 (0.1-1.2) % Neut # (Auto) 15.00 H (1.56-6.13) K/mm3 Lymph # (Auto) 2.37 (1.18-3.74) K/mm3 [place] # (Auto) 1.47 H (0.24-0.36) K/mm3 Eos # (Auto) 0.06 (0.04-0.36) K/mm3 Baso # (Auto) 0.01 (0.01-0.08) K/mm3 Sodium (136-145) mEq/L Potassium (3.5-5.1) mEq/L Chloride (98-107) mEq/L Carbon Dioxide (21-32) mEq/L Anion Gap (5-15) BUN (7-18) mg/dL Creatinine (0.55-1.02) mg/dL Est Cr Clr Drug Dosing mL/min Estimated GFR (MDRD) (>60) mL/min BUN/Creatinine Ratio (14-18) Glucose (74-106) mg/dL Calcium (8.5-10.1) mg/dL Magnesium (1.8-2.4) mg/dl Total Bilirubin (0.2-1.0) mg/dL AST (15-37) U/L ALT (14-59) U/L Alkaline Phosphatase (46-116) U/L Total Protein (6.4-8.2) g/dl Albumin (3.4-5.0) g/dl Globulin gm/dL Albumin/Globulin Ratio (1-2) Urine Opiates Screen Presumptive positive H (XGJNMG=147) Ur Buprenorphine Scrn Negative (CUTOFF=10) Ur Oxycodone Screen Negative (CTS1MX=302) Urine Methadone Screen Negative (VMNTMW=056) Ur Propoxyphene Screen Negative (AZSUHX=777) Ur Barbiturates Screen Negative (OZKLAP=344) Ur Tricyclics Screen Negative (ZPHJWY=350) Ur Phencyclidine Scrn Negative (CUTOFF=25) Ur Amphetamine Screen Negative (KKHFEU=622) U Methamphetamines Scrn Negative (VTCYHQ=472) U Benzodiazepines Scrn Negative (EAGNSZ=774) U Cocaine Metab Screen Negative (BIITXK=633) U Marijuana (THC) Screen Presumptive positive H (CUTOFF=50) RPR Non-reactive (NONREACTIVE) 09/11/20 09/11/20 Range/Units 00:09 07:42 WBC 13.39 H (3.98-10.04) K/mm3 RBC 3.71 L (3.98-5.22) M/mm3 Hgb 10.7 L (11.2-15.7) gm/dl Hct 32.7 L (34.1-44.9) % MCV 88.1 (79.4-94.8) fl MCH 28.8 (25.6-32.2) pg MCHC 32.7 (32.2-35.5) g/dl RDW Std Deviation 46.6 H (36.4-46.3) fL Plt Count 294 (182-369) K/mm3 MPV 10.2 (9.4-12.3) fl Neut % (Auto) 67.3 (34.0-71.1) % Lymph % (Auto) 23.7 (19.3-51.7) % [place] % (Auto) 7.5 (4.7-12.5) % Eos % (Auto) 1.0 (0.7-5.8) Baso % (Auto) 0.1 (0.1-1.2) % Neut # (Auto) 8.99 H (1.56-6.13) K/mm3 Lymph # (Auto) 3.18 (1.18-3.74) K/mm3 [place] # (Auto) 1.00 H (0.24-0.36) K/mm3 Eos # (Auto) 0.14 (0.04-0.36) K/mm3 Baso # (Auto) 0.02 (0.01-0.08) K/mm3 Sodium 140 (136-145) mEq/L Potassium 4.2 (3.5-5.1) mEq/L Chloride 106 (98-107) mEq/L Carbon Dioxide 24 (21-32) mEq/L Anion Gap 14.2 (5-15) BUN 9 (7-18) mg/dL Creatinine 0.7 (0.55-1.02) mg/dL Est Cr Clr Drug Dosing 100.55 mL/min Estimated GFR (MDRD) > 60 (>60) mL/min BUN/Creatinine Ratio 12.9 L (14-18) Glucose 118 H (74-106) mg/dL Calcium 8.0 L (8.5-10.1) mg/dL Magnesium 1.7 L (1.8-2.4) mg/dl Total Bilirubin 0.4 (0.2-1.0) mg/dL AST 27 (15-37) U/L ALT 42 (14-59) U/L Alkaline Phosphatase 331 H (46-116) U/L Total Protein 5.8 L (6.4-8.2) g/dl Albumin 1.9 L (3.4-5.0) g/dl Globulin 3.9 gm/dL Albumin/Globulin Ratio 0.5 L (1-2) Urine Opiates Screen (NETYIC=883) Ur Buprenorphine Scrn (CUTOFF=10) Ur Oxycodone Screen (OQG3TO=957) Urine Methadone Screen (ETEOVY=148) Ur Propoxyphene Screen (ORPXWE=782) Ur Barbiturates Screen (QYEHYT=258) Ur Tricyclics Screen (GVGITG=318) Ur Phencyclidine Scrn (CUTOFF=25) Ur Amphetamine Screen (SVHZTA=518) U Methamphetamines Scrn (PNLOKH=136) U Benzodiazepines Scrn (XVNMNY=503) U Cocaine Metab Screen (SXGKHF=137) U Marijuana (THC) Screen (CUTOFF=50) RPR (NONREACTIVE) Med Orders - Current: Current Medications Acetaminophen (Acetaminophen 325 Mg Tab) 650 mg PO Q6H PRN PRN Reason: Pain Benzocaine/Menthol (Benzocaine/Menthol 20%-0.5% [place] 56 Gm Canister) 0 gm TOP ASDIRECTED PRN PRN Reason: Perineal Comfort Measure Hydroxyzine HCl (Hydroxyzine Hcl 25 Mg Tab) 50 mg PO BEDTIME [facility] Last Admin: 09/11/20 00:36 Dose: Not Given Documented by: Ibuprofen (Ibuprofen 600 Mg Tab) 600 mg PO Q4H PRN PRN Reason: Mild pain or fever Last Admin: 09/11/20 08:22 Dose: 600 mg Documented by: Miscellaneous Information (Remove Nicotine Patch) 1 ea TRDERM DAILY [facility] Last Admin: 09/11/20 08:23 Dose: Not Given Documented by: Nicotine (Nicotine 21 Mg/24 Hr Patch) 21 mg TRDERM DAILY [facility] Last Admin: 09/11/20 08:21 Dose: Not Given Documented by: Oxycodone/Acetaminophen (Acetaminophen/Oxycodone 325-5 Mg Tab) 2 tab PO Q4H PRN PRN Reason: Anxiety Last Admin: 09/11/20 00:40 Dose: 2 tab Documented by: Elda Stoll (Elda Stoll Medicated Pads 40/Jar) 1 pad TOP ASDIRECTED PRN PRN Reason: Perineal Comfort Measure Discontinued Medications Ampicillin Sodium (Ampicillin 2 Gm Advvial) Confirm Administered Dose 2 gm IV .STK-MED ONE Stop: 09/10/20 08:01 Last Admin: 09/10/20 15:29 Dose: Not Given Documented by: Diphenhydramine HCl (Diphenhydramine 50 Mg/Ml Sdv) 25 mg IVPUSH Q6H PRN PRN Reason: pruritis Ephedrine Sulfate (Ephedrine 50 Mg/Ml Sdv) 5 mg IVPUSH ASDIRECTED PRN PRN Reason: Hypotension Fentanyl (Fentanyl 100 Mcg/2 Ml Sdv) 100 mcg EPIDUR Q3H PRN PRN Reason: Pain Last Admin: 09/10/20 08:24 Dose: 100 mcg Documented by: Hydroxyzine HCl (Hydroxyzine Hcl 50 Mg Tab) 50 mg PO BEDTIME [facility] Last Admin: 09/10/20 22:10 Dose: 50 mg Documented by: Sodium Chloride (Normal Saline) Confirm Administered Dose 100 mls @ as directed .ROUTE .STK-MED ONE Stop: 09/10/20 08:02 Last Admin: 09/10/20 15:29 Dose: Not Given Documented by: Ampicillin Sodium 2 gm/ Sodium (Chloride) 100 mls @ 200 mls/hr IV ONETIME ONE Stop: 09/10/20 08:59 Last Admin: 09/10/20 08:00 Dose: 200 mls/hr Documented by: Ampicillin Sodium 1 gm/ Sodium (Chloride) 100 mls @ 200 mls/hr IV Q4H [facility]IE Oxytocin/Lactated Ringer's (Pitocin In Lr 10 Units/1,000 Ml) 10 unit in 1,000 mls @ 100 mls/hr IV .CONTINUOUS ARTIE Last Admin: 09/10/20 09:08 Dose: 100 mls/hr Documented by: Lactated Ringer's (Ringers, Lactated) 1,000 mls @ 100 mls/hr IV ASDIRECTED ARTIE Last Admin: 09/10/20 07:55 Dose: 100 mls/hr Documented by: Magnesium Sulfate (Magnesium Sulfate In Water 2 Gm/50 Ml) 2 gm in 50 mls @ 50 mls/hr IV ONETIME ONE Stop: 09/11/20 03:59 Lorazepam (Lorazepam 0.5 Mg Tab) 0.5 mg PO Q4H PRN PRN Reason: Anxiety Last Admin: 09/10/20 21:44 Dose: 0.5 mg Documented by: Nalbuphine HCl (Nalbuphine 10 Mg/1 Ml Vial) 10 mg IVPUSH Q2H PRN PRN Reason: Pain Ondansetron HCl (Ondansetron 4 Mg/2 Ml Sdv) 4 mg IVPUSH Q4H PRN PRN Reason: Nausea/Vomiting Sodium Chloride (Sodium Chloride 0.9% 10 Ml Syringe) 10 ml FLUSH ASDIRECTED PRN PRN Reason: Keep Vein Open
[2020-09-11 12:11] VITALS: BP 119/57; PULSE 51
[2020-09-11] MEDS ORDERED: hydrOXYzine HCl 50 MG Tab PO SCH (21:00)
== END 2020-09-11 13:00 | disposition home or self-care (01) | DRG 806 ==
LOC: JD.OBCHECK 07:35 → JD.OB 08:03 → OBSVTOIN 09:05
PROVIDERS: ADMIT Obstetrics & Gynecology; ATTEND Obstetrics & Gynecology
PROC: 10E0XZZ Delivery of Products of Conception, External Approach (ICD-10-PCS; principal; 2020-09-10)
PROC: 3E0R3BZ Introduction of Anesthetic Agent into Spinal Canal, Percutaneous Approach (ICD-10-PCS; 2020-09-10)
PROC: 00HU33Z Insertion of Infusion Device into Spinal Canal, Percutaneous Approach (ICD-10-PCS; 2020-09-10)
DX: O77.0 Labor and delivery complicated by meconium in amniotic fluid (principal); F11.23 Opioid dependence with withdrawal; Z37.0 Single live birth; O99.324 Drug use complicating childbirth; Z3A.39 39 weeks gestation of pregnancy; O99.52 Diseases of the respiratory system complicating childbirth; J45.909 Unspecified asthma, uncomplicated; Z90.49 Acquired absence of other specified parts of digestive tract; O99.344 Other mental disorders complicating childbirth; F41.9 Anxiety disorder, unspecified; Z20.822 Contact with and (suspected) exposure to COVID-19
CPT/HCPCS: 01967; 36415; 51701; 59025; 59409; 80053; 80306; 83735; 85025; 86592; 86803; 93005; A9270-GY; G0480; J0290; J2590; J3010; J7120; U0002

== ENCOUNTER 2025-02-11 12:15 | Emergency (ER) | payer SELFPAY ==
[2025-02-11 14:01] LABS: APPEARANCE,URINE CLEAR (Clear); GLUCOSE,URINE NEGATIVE (Negative); OCCULT BLOOD,URINE NEGATIVE (Negative)
[2025-02-11] MEDS: Ketorolac 60 MG/2 ML SDV IM ONE (14:08)
[2025-02-11 15:44] VITALS: BP 109/70; PULSE 88
== END 2025-02-11 14:47 ==
LOC: JD.ED 12:15
DX: M54.50 Low back pain, unspecified (principal); J45.909 Unspecified asthma, uncomplicated; Z90.49 Acquired absence of other specified parts of digestive tract
CPT/HCPCS: 81003; 96372; 99283; J1885